=== PATIENT | male | born 1970 | race Caucasian/White ===

== ENCOUNTER → 2020-08-16 | Day surgery (SDC) | payer BC ==
[~2020-08-16] MED LIST: Ketamine 200 MG/20 ML MDV ONE; Lactated Ringers 1,000 ML IV SCH; Propofol 200 MG/20 ML SDV ONE; fentaNYL 100 MCG/2 ML SDV ONE
--- NOTE | 2020-08-16 13:15 | OR ---
DATE OF OPERATION: 08/16/2020 PREOPERATIVE DIAGNOSIS: SCREENING COLONOSCOPY. POSTOPERATIVE DIAGNOSIS: SCREENING COLONOSCOPY. SURGEON: Rao Mcgee MD PROCEDURE: FULL-LENGTH COLONOSCOPY WITH SNARE POLYPECTOMY X1, FORCEPS POLYP REMOVAL X2. ANESTHESIA: MAC. COMPLICATIONS: None. SPECIMEN: 1. Large tubular adenoma, rectosigmoid junction, approximately 2 cm. 2. Small sessile polyp, rectosigmoid junction. 3. Small sessile polyp, rectal vault. FINDINGS: 1. Full-length screening colonoscopy. 2. Large tubular adenoma, rectosigmoid junction at 20 cm. 3. Two small sessile polyps, each approximately 2 to 3 mm. RECOMMENDATIONS: Followup colonoscopy in the next year or two pending path report. INDICATIONS: The patient was in for routine physical. He has never had a prior colon cancer screen. We recommended colonoscopy. DESCRIPTION OF PROCEDURE: The patient was prepped and draped, placed in the left lateral decubitus position. A lubricated Olympus colonoscope was inserted and with ease advanced to the cecum. Direct visualization of the ileocecal valve and appendiceal orifice was accomplished. The bowel prep was excellent. Upon withdrawal of the scope, the cecum and ascending colon appeared completely benign. No signs of any lesions in the transverse or descending area. The sigmoid colon had no signs of any diverticula, colitis, or abnormality until its distal portion around 20 cm in the rectosigmoid junction, the patient had a large stalk tubular adenoma that was 2 cm in size. We were able to get down along the base of this and remove with a snare without difficulty and removed it through the rectum on the end of the scope. Re-evaluation of the removal site showed this to be flat along the fold, but there is some mucosal abnormality. It is a really floppy, dilated fold, hard to assess necessarily if there is any further involvement deeper, but it does not appear so. There was 1 small little sessile polyp right next to this of about 2 mm which was removed with a forceps. The rectal vault appeared benign other than 1 small little sessile polyp in its midportion which was removed with a forceps as well. Retroflexion showed no perianal lesions. Air was suctioned and the scope removed without complication. ZHANNA/MANUEL /[id number]
== END ==
LOC: CC.SDS 07:30
PROVIDERS: ATTEND Family Medicine
DX: Z12.11 Encounter for screening for malignant neoplasm of colon (principal); D12.5 Benign neoplasm of sigmoid colon; N40.0 Benign prostatic hyperplasia without lower urinary tract symptoms; K21.9 Gastro-esophageal reflux disease without esophagitis; K62.1 Rectal polyp; Z87.891 Personal history of nicotine dependence
CPT/HCPCS: 00812; J2704; J3010; J7120

== ENCOUNTER → 2021-08-15 | Day surgery (SDC) | payer BC | LOC: CC.SDS 11:51 | PROVIDERS: ATTEND Family Medicine | DX: Z12.11 Encounter for screening for malignant neoplasm of colon (principal); K63.5 Polyp of colon; N40.0 Benign prostatic hyperplasia without lower urinary tract symptoms; N52.9 Male erectile dysfunction, unspecified; K21.9 Gastro-esophageal reflux disease without esophagitis; Z87.891 Personal history of nicotine dependence; Z79.899 Other long term (current) drug therapy; Z98.890 Other specified postprocedural states | CPT/HCPCS: 00811; J2704; J3010; J7120 ==

== ENCOUNTER 2024-09-08 10:27 | Day surgery (SDC) | payer BC ==
[2024-09-08] MEDS: Lactated Ringers 1,000 ML IV SCH (10:40)
== END 2024-09-08 12:02 | disposition home or self-care (01) ==
LOC: CC.SDS 10:27
PROVIDERS: ATTEND Family Medicine
DX: Z12.11 Encounter for screening for malignant neoplasm of colon (principal); K63.5 Polyp of colon; Z86.0100 Personal history of colon polyps, unspecified; N40.0 Benign prostatic hyperplasia without lower urinary tract symptoms
CPT/HCPCS: 00811; 45380; J7120